=== PATIENT | female | born 1995 | race African-American/Black ===

== ENCOUNTER 2020-10-07 00:23 | Emergency (ER) | payer BC ==
[2020-10-07 00:48] LABS: #Basophils 0.1 thou/uL (0.0-0.2); #Lymphocytes 2.5 thou/uL (1.20-3.40); #Monocytes 0.5 thou/uL (0.11-0.59); #Neutrophils 5.3 thou/uL (1.40-6.50); %Basophils 0.8 % (0.0-1.0); %Eosinophils 0.2 % (0.0-10.0); %Lymphocytes 29.4 % (21.0-51.0); %Monocytes 6.5 % (0.0-10.0); %Neutrophils 63.1 % (42.0-75.0); Hemoglobin 11.9 g/dL (12.0-16.0); Mean Corpuscular HGB CONC 35.2 g/dL (32.0-36.0); Mean Corpuscular Hemoglobin 31.7 pg (27.0-31.0); Mean Corpuscular Volume 90.1 fL (78.0-98.0); Mean Platelet Volume 6.1 fL (7.4-10.4); Platelet Count 385 thou/uL (130-400); RBC Distribution Width 10.8 % (11.5-14.5); Red Blood Cell (RBC) Count 3.75 mill/uL (4.20-5.40); White Blood Cell (WBC) Count 8.4 thou/uL (4.8-10.8)
[2020-10-07 00:55] LABS: BHCG - Serum POSITIVE (NEGATIVE); Pregs Control Background? CLEAR/WHITE (CLR/WHITE); Pregs Control Bar Appear? YES (CONTROL BAR)
[2020-10-07 01:06] LABS: ALT (SGPT) Less than 7 U/L (8-55); AST (SGOT) 12 U/L (5-34); Albumin 3.9 g/dL (3.5-5.0); Alkaline Phosphatase 76 U/L (40-110); Anion Gap 16 mmol/L (10-20); BUN (Urea Nitrogen) 7 mg/dL (7.0-18.7); Bilirubin, Total 0.3 mg/dL (0.2-1.2); Calc. Creatinine Clearance 0 mL/min (70-130); Calcium 9.1 mg/dL (7.8-10.44); Carbon Dioxide 18 mmol/L (22-29); Chloride 106 mmol/L (98-107); Globulin 3.3 g/dL (2.4-3.5); Glucose 83 mg/dL (70-105); Potassium 3.7 mmol/L (3.5-5.1); Protein, Total 7.2 g/dL (6.0-8.3); Sodium 136 mmol/L (136-145)
[2020-10-07] MEDS ORDERED: Ondansetron PF 4 MG/2 ML Vial ONE (01:56)
[2020-10-07 02:13] LABS: Bacteria/HPF 1+ HPF (None Seen); Bilirubin Negative (Negative); Blood, Urine 1+ (Negative); Clarity Turbid (Clear); Glucose, Urine (Dipstick) Normal (Negative); Ketone, Urine 100 mg/dL (Negative); Leukocyte 25 Leu/uL (Negative); Nitrite 1+ (Negative); Pregnancy Test - Urine (BHCG) POSITIVE (Negative); Pregu Control Background? CLEAR/WHITE (CLR/WHITE); Pregu Control Bar Appear? YES (CONTROL BAR); Protein, Urine (Dipstick) 10 mg/dL (Neg-Trace); Specific Gravity 1.025 (1.002-1.036); Specific Gravity, Urine 1.025 (1.002-1.036); Squamous Epithelial 0-3 HPF (0-3)
[2020-10-07] MEDS ORDERED: cefTRIAXone\\ROCEPHIN 1 GM VIAL ONE (02:37)
== END 2020-10-07 03:52 | disposition home or self-care (01) ==
LOC: ERS 00:23
DX: O23.41 Unspecified infection of urinary tract in pregnancy, first trimester (principal); O21.9 Vomiting of pregnancy, unspecified; Z3A.10 10 weeks gestation of pregnancy
CPT/HCPCS: 36415; 80053; 81003; 81015; 81025; 84703; 85025; 96361; 96374; 96375; J0696; J2405

== ENCOUNTER 2020-12-11 02:21 | Inpatient (IN) | payer BC, OTHER ==
[2020-12-11 03:13] LABS: #Lymphocytes 2.3 thou/uL (1.20-3.40); #Monocytes 0.4 thou/uL (0.11-0.59); #Neutrophils 7.5 thou/uL (1.40-6.50); %Basophils 0.3 % (0.0-1.0); %Eosinophils 0.4 % (0.0-10.0); %Lymphocytes 22.3 % (21.0-51.0); %Monocytes 4.2 % (0.0-10.0); %Neutrophils 72.8 % (42.0-75.0); Hemoglobin 11.2 g/dL (12.0-16.0); Mean Corpuscular HGB CONC 33.5 g/dL (32.0-36.0); Mean Corpuscular Volume 92.3 fL (78.0-98.0); Mean Platelet Volume 6.1 fL (7.4-10.4); Platelet Count 356 thou/uL (130-400); RBC Distribution Width 11.4 % (11.5-14.5); White Blood Cell (WBC) Count 10.3 thou/uL (4.8-10.8)
[2020-12-11 03:31] LABS: Bacteria/HPF 4+ HPF (None Seen); Bilirubin Negative (Negative); Blood, Urine 1+ (Negative); Clarity Turbid (Clear); Glucose, Urine (Dipstick) Normal (Negative); Ketone, Urine Negative (Negative); Leukocyte 500 Leu/uL (Negative); Mucous/LPF 4+ LPF (<2+); Nitrite 2+ (Negative); Protein, Urine (Dipstick) 30 mg/dL (Neg-Trace); Specific Gravity, Urine 1.032 (1.002-1.036); Squamous Epithelial 0-3 HPF (0-3); Urobilinogen 6 mg/dL (Less than 2); WBC/HPF Greater than 50 HPF (0-3); pH, Urine 6.5 (5.0-9.0)
[2020-12-11] MEDS ORDERED: Morphine 4 MG/ML VIAL ONE (03:31)
[2020-12-11] MEDS ORDERED: Ondansetron PF 4 MG/2 ML Vial ONE (03:31)
[2020-12-11 03:35] LABS: ALT (SGPT) 8 U/L (8-55); AST (SGOT) 18 U/L (5-34); Albumin 3.7 g/dL (3.5-5.0); Alkaline Phosphatase 121 U/L (40-110); Anion Gap 13 mmol/L (10-20); BUN (Urea Nitrogen) 7 mg/dL (7.0-18.7); Bilirubin, Total 0.4 mg/dL (0.2-1.2); Calc. Creatinine Clearance 0 mL/min (70-130); Calcium 8.6 mg/dL (7.8-10.44); Carbon Dioxide 18 mmol/L (22-29); Chloride 108 mmol/L (98-107); Globulin 3.7 g/dL (2.4-3.5); Glucose 83 mg/dL (70-105); Potassium 3.3 mmol/L (3.5-5.1); Protein, Total 7.4 g/dL (6.0-8.3); Sodium 136 mmol/L (136-145)
[2020-12-11] MEDS ORDERED: cefTRIAXone\\ROCEPHIN 1 GM VIAL ONE (04:03)
[2020-12-11] MEDS ORDERED: Acetaminophen 325 MG TAB ONE (05:45)
[2020-12-11] MEDS ORDERED: Calcium Carbonate 500 MG ChewTAB PO PRN (06:10)
[2020-12-11] MEDS ORDERED: Ondansetron ODT 4 MG TAB PO PRN (06:10)
[2020-12-11] MEDS ORDERED: Ondansetron PF 4 MG/2 ML Vial IVP PRN (06:10)
[2020-12-11] MEDS ORDERED: Acetaminophen 325 MG TAB PO PRN (06:10)
[2020-12-11] MEDS ORDERED: Sodium Chloride 0.9% 1,000 ML IV SCH (06:15)
[2020-12-11 08:02] VITALS: BMI 22.5
--- NOTE | 2020-12-11 10:01 | HP ---
CHIEF COMPLAINT: Flank pain. HISTORY OF PRESENT ILLNESS: This is a 25-year-old, G2, P1, at 19 weeks 5 days who presented to the emergency department with new-onset right-sided flank pain. She sees Dr. Miller at [facility] for her OB care. She reports she had a UTI 3 weeks ago but was unable to tolerate her antibiotics and vomited most of them up. She did feel better after that, but started having flank pain earlier this week with worsening symptoms last night. She does endorse nausea and vomiting, but denies any changes in bowel habits or urination. REVIEW OF SYSTEMS: Negative for head, eyes, ears, nose, throat, cardiovascular, respiratory, GI, , neuropsych, musculoskeletal, skin, or constitutional symptoms other than mentioned above. PAST MEDICAL HISTORY: None. PAST SURGICAL HISTORY: None. MEDICATIONS: vitamins. ALLERGIES: NO KNOWN DRUG ALLERGIES. SOCIAL HISTORY: Negative for tobacco, alcohol, or drug abuse. FAMILY HISTORY: Significant only for hypertension and kidney cancer in her father. PHYSICAL EXAMINATION: VITAL SIGNS: Blood pressure 107/60, pulse 106, temperature 98.8, respiratory rate 18, and O2 saturation 97% on room air. GENERAL: Awake, alert, in no acute distress. CHEST: Nonlabored. ABDOMEN: Soft, gravid, mildly tender to palpation in the lower abdomen. BACK: Right CVA tenderness. EXTREMITIES: No edema. PELVIC: Deferred. LABORATORY: WBC 10.3, hemoglobin 11.2, hematocrit 33.3, platelets 356,000. Chemistry unremarkable. Urine; 2+ nitrites, 500 leukocyte esterase, 4+ bacteria. ASSESSMENT AND PLAN: A 25-year-old, G2, P1, at 19 weeks 5 days with pyelonephritis. She was admitted and placed on Rocephin for antibiotic therapy. She will also receive IV fluids. She appears nontoxic and is stable. She will be transferred over to the [facility] for the remainder of her hospitalization. We will get heart tones daily. Continue to monitor. Job ID: [id number]
[2020-12-11 10:50] VITALS: BP 102/56; TEMP 98.7
[2020-12-12] MEDS ORDERED: cefTRIAXone\\ROCEPHIN 1 GM in Sodium Chloride 0.9% 100 ML IVPB SCH (06:00)
== END 2020-12-11 11:20 | disposition short-term general hospital (02) | DRG 833 ==
LOC: ERS 02:21 → 3SW 04:08
PROVIDERS: ADMIT Obstetrics & Gynecology; ATTEND Obstetrics & Gynecology
DX: O23.02 Infections of kidney in pregnancy, second trimester (principal); Z3A.19 19 weeks gestation of pregnancy; Z80.51 Family history of malignant neoplasm of kidney; Z82.49 Family history of ischemic heart disease and other diseases of the circulatory system
CPT/HCPCS: 51701; 80053; 81003; 81015; 85025; 87077; 87086; 87186; 96365; 96375; J0696; J2270; J2405